=== PATIENT | male | born 2000 | race Caucasian/White ===

== ENCOUNTER → 2024-02-21 | Day surgery (SDC) | payer BC ==
[2024-02-17 12:09] VITALS: BMI 19.8
[~2024-02-21] MED LIST: PROPOFOL 10 MG/ML 20 ML VIAL IV ONE
[2024-02-21] MEDS: IV FLUID CONTINUATION 1,000 ML IV ONE (11:25)
[2024-02-21 11:26] VITALS: TEMP 96
[2024-02-21] MEDS: LACTATED RINGERS 1,000 ML IV SCH (11:28)
--- NOTE | 2024-02-21 11:57 | P.GSHP ---
History of Present Illness H&P Date: 02/21/24 Chief Complaint: Change in bowel habits 23-year-old male here with complaints of chronic diarrhea for the last 7 months or so. Up to 5 times per day. Worse when he is stressed. No rectal bleeding or melena. No family history of Crohn's disease. Patient states he had a CAT scan but he does not know of the findings. No stool samples have been done. Past Medical History Additional Past Medical History / Comment(s): Diarrhea- having colonscopy History of Any Multi-Drug Resistant Organisms: None Reported Past Surgical History: No Surgical Hx Reported Past Anesthesia/Blood Transfusion Reactions: Unable to Obtain Smoking Status: Never smoker - Past Family History Father Family Medical History: No Reported History Medications and Allergies Home Medications Medication Instructions Recorded Confirmed Type Famotidine 20 mg PO DAILY 02/17/24 02/21/24 History Ondansetron [Zofran] 4 mg PO Q8HR PRN 02/17/24 02/21/24 History Vortioxetine Hydrobromide 10 mg PO DAILY 02/17/24 02/21/24 History [Trintellix] Allergies Allergy/AdvReac Type Severity Reaction Status Date / Time No Known Allergies Allergy Verified 02/21/24 11:26 Surgical - Exam Vital Signs Temp Pulse Resp BP Pulse Ox 96.0 F L 90 18 151/77 98 02/21/24 11:24 02/21/24 11:24 02/21/24 11:24 02/21/24 11:24 02/21/24 11:24 Physical exam: General: Well-developed, well-nourished HEENT: Normocephalic, sclerae nonicteric Abdomen: Nontender, nondistended Extremities: No edema Neuro: Alert and oriented Assessment and Plan (1) Change in bowel habits Narrative/Plan: Will proceed with colonoscopy at this time. Current Visit: Yes Status: Acute Code(s): R19.4 - CHANGE IN BOWEL HABIT SNOMED Code(s): 98609403
--- NOTE | 2024-02-21 12:11 | P.PCN ---
Date of Procedure: 02/21/24 Procedure(s) Performed: PREOPERATIVE DIAGNOSIS: Change in bowel habits POSTOPERATIVE DIAGNOSIS: Normal-appearing colon and small bowel PROCEDURE: Colonoscopy with biopsy and culture ANESTHESIA: [facility] [place] SURGEON: Hair Barnhart M.D. SPECIMENS: Ileum, random colon, stool culture ENDOSCOPIC PROCEDURE: The patient was placed on the endoscopy table in the left decubitus position. The Olympus colonoscope was inserted into the anus and passed under direct visualization to the base of the cecum. The appendiceal orifice was visualized. The ileum was intubated. It appeared grossly normal. Biopsies were taken. From that point the scope was slowly withdrawn inspecting all surfaces carefully. There were no neoplastic inflammatory or polypoid lesions throughout the cecum, ascending, transverse, descending, sigmoid and rectum. Biopsies randomly through the colon were taken to rule out microscopic colitis. There was no visible diverticulosis. Liquid stool was taken for stool culture, C. difficile, and ova and parasites. Digital rectal examination was normal. The patient was taken to the recovery room in stable condition per anesthesia guidelines. RECOMMENDATIONS: Await biopsy results and culture.
[2024-02-21 12:42] VITALS: RESP 16
[2024-02-21 13:13] VITALS: BP 122/58; PULSE 77
[2024-02-21 23:57] LABS: Cryptosporidium Antigen Negative (Negative)
== END ==
LOC: ORWHC2ENDO 10:52
PROVIDERS: ATTEND Surgery
DX: R19.4 Change in bowel habit (principal); F41.9 Anxiety disorder, unspecified; F32.A Depression, unspecified; Z79.899 Other long term (current) drug therapy
CPT/HCPCS: 88305; 87324; 87045; 87329; 87328; 87046; 45380; J2704